=== PATIENT | female | born 1950 | race Caucasian/White ===

== ENCOUNTER → 2020-01-13 09:31 | Outpatient (BNVA) | payer SELFPAY | PROVIDERS: PCP Internal Medicine; Referring Provider Internal Medicine; Visit Provider Dietitian, Registered | DX: Z76.89 Persons encountering health services in other specified circumstances (principal) ==

== ENCOUNTER → 2020-03-18 09:27 | Outpatient (BNVA) | payer SELFPAY | PROVIDERS: PCP Internal Medicine; Referring Provider Internal Medicine; Visit Provider Surgery | DX: Z76.89 Persons encountering health services in other specified circumstances (principal) ==

== ENCOUNTER 2020-08-31 11:26 | Outpatient (REF) | payer MEDICARE, SELFPAY ==
--- NOTE | ~2020-08-31 | MM_ITS ---
EXAMINATION: MM SCREENING DIGITAL BREAST TOMOSYNTHESIS, BILATERAL CLINICAL INFORMATION: Screening. Asymptomatic. The lifetime risk of breast cancer based on the Tyrer-Cuzick Model is 3%. COMPARISON: Mammography: 06/19/2018, 12/03/2013 TECHNIQUE: Digital breast tomosynthesis is performed in both the craniocaudal and mediolateral oblique views along with computer-aided detection (CAD). Synthesized 2D images are generated from the tomosynthesis. FINDINGS: There are scattered areas of fibroglandular density (ACR BI-RADS breast composition Category b). Parenchymal pattern is similar to prior studies. There is no interval mass or architectural abnormality or abnormal calcifications. Again, there is a biopsy clip marker left breast posterior 3:00 position. There are benign grouped coarse calcifications anterior 5:00 right breast and a benign heavily calcified nodule mid lower inner left breast consistent with degenerating fibroadenoma. The axilla and skin contours are unremarkable. MM/MM tomosynthesis screening BI IMPRESSION: No significant changes from prior exams. ASSESSMENT: BI-RADS 2: Benign RECOMMENDATION: Routine annual mammography screening. This patient's information was entered into a reminder system with a target due date for their next mammogram.
== END 2020-08-31 11:27 | disposition home or self-care (01) ==
LOC: HO.MAMMO 11:26
PROVIDERS: PCP Internal Medicine; Visit Provider Internal Medicine
DX: Z12.31 Encounter for screening mammogram for malignant neoplasm of breast (principal)
CPT/HCPCS: 77063; 77067

== ENCOUNTER → 2020-11-10 12:19 | Outpatient (BNVA) | payer MEDICARE, SELFPAY | PROVIDERS: Visit Provider Orthopaedic Surgery | DX: M75.40 Impingement syndrome of unspecified shoulder (principal) | CPT/HCPCS: 20610; 99212; J1040 ==

== ENCOUNTER 2022-10-18 13:22 | Outpatient (AMB) | payer MEDICARE, SELFPAY ==
--- NOTE | 2022-10-18 14:10 | MHC.OFFWIV ---
Intake Vital Signs 10/18/22 14:16 BP 122/80 Blood Pressure Location Rt brachial Position Sitting Pulse 80 Pulse Source Pulse Oximeter Temp 97.7 F Temp Source Temporal Artery Scan Pulse Oximetry (%) 98 Oxygen Delivery Method Room Air Intake Visit Reasons: REHABILITATION PROGRAM COORDINATOR, Cough , needlestick right hand (lobby)(masked) Intake Note: Patient here for cough thats been present for about 2 weeks, coughing frequently. She also wanted to talk about how she was stuck with a diabetic needle while picking some trash up that someone had thrown into her yard. Patient Tobacco Use Status: Current everyday Tobacco user Allergies diphenhydramine [From BENADRYL] Allergy (Severe, Unverified 10/18/22 14:15) CHEST PAIN adhesive tape [ADHESIVE TAPE] Allergy (Intermediate, Unverified 10/18/22 14:15) BLISTERES, RASH oxycodone [From Percocet] Allergy (Intermediate, Unverified 10/18/22 14:15) ITCHING acetaminophen [Percocet] Allergy (Unknown, Verified 10/18/22 14:15) unk adhesive tape Allergy (Unknown, Uncoded 10/18/22 14:15) unk Do you need a note to return to daycare/school/sports/work: No HPI REHABILITATION PROGRAM COORDINATOR, Cough , needlestick right hand (lobby)(masked) HPI Details Patient presents today with 2 primary concerns. She reports an upper respiratory infection for the last 2 weeks, that has not responded to conservative methods and [id number] treatment. She has had persistent cough and congestion with clear/yellow sputum. She denies any fever, chills, shortness of breath, or GI symptoms. She also reports getting an accidental needlestick in the palm of her right hand 3 days ago, when removing the bag of trash someone had dumped in her yard. The needle did break her skin. She noted that this was a diabetic needle, in the presence of other diabetic supplies. [facility] Medical History HTN (hypertension) Osteoarthritis Surgical History History of endometrial ablation History of laser assisted in situ keratomileusis History of repair of hiatal hernia History of sleeve gastrectomy Hx laparoscopic cholecystectomy Hx of arthroscopic knee surgery Hx of carpal tunnel repair Hx of colonoscopy Hx of laparoscopic gastric banding Hx of tubal ligation Family History Father Aspiration pneumonia Diabetes mellitus CVA (cerebral vascular accident) Mother Arthritis Failure to thrive Brother Small cell lung cancer Brother Arthritis Total knee replacement status Brother Arthritis Total knee replacement status Brother MIS (Mullerian inhibiting substance) deficiency Brother MIS (Mullerian inhibiting substance) deficiency Daughter Seasonal allergies Social History Alcohol intake: never Patient Tobacco Use Status: Current everyday Tobacco user Review of Systems Const All systems reviewed & are unremarkable except as noted in HPI and below Physical Exam Vital Signs: Last Vital Signs Temp 97.7 F 10/18/22 14:16 Pulse 80 10/18/22 14:16 BP 122/80 10/18/22 14:16 Pulse Ox 98 10/18/22 14:16 Oxygen Delivery Method Room Air 10/18/22 14:16 Const General: cooperative, healthy appearing, comfortable and no acute distress HEENT Head: Yes normal to inspection Ears: hearing grossly normal bilaterally General nose exam: Normal external nose present and Normal nasal mucous membranes and turbinates present Face and sinus: Yes normal facial exam Mouth: Normal oral and palatal mucosa present and moist mucous membranes Throat: Yes posterior oropharynx abnormal (Mild erythema) Neck Neck: Yes no lymphadenopathy Resp Effort & Inspection: normal respiratory effort, able to speak in complete sentences and Actively coughing Quality: actively coughing Auscultation: clear to auscultation bilaterally and wheezes right upper Cardio Jugular venous distension: no JVD Palpation: normal PMI Rate: regular rate Rhythm: regular rhythm Skin General skin exam: no rashes or lesions noted Extrem General: Yes capillary refill normal and Yes no clubbing, cyanosis or edema Psych Appearance: grossly normal Mental Status: mental status grossly normal Speech and movement: Normal speech and movement present Assessment & Plan Assessment & Plan (1) Needle stick, hypodermic, accidental: Code(s): W46.0XXA - Contact with hypodermic needle, initial encounter Qualifiers: Encounter type: initial encounter Qualified Code(s): W46.0XXA - Contact with hypodermic needle, initial encounter Plan: Patient suffered an accidental needlestick in her right hand on Sunday, when she was picking up a bag of trash that had been dumped in her yard. She reports it was a diabetic needle. Needle stick site is healed at this time. I will order screening labs for HIV/Hepatitis. Patient declines tetanus shot at this time. Will discuss this and any further screening labs with her PCP next month. (2) Upper respiratory infection: Code(s): J06.9 - Acute upper respiratory infection, unspecified Plan: Azithromycin for URI which has been persistent for over 2 weeks. Reviewed indications, use, possible side effects. Orders: Orders Hepatitis A,B,C Profile Today W46.0XXA - Contact with hypodermic needle, initial encounter HIV Ab/Ag Today W46.0XXA - Contact with hypodermic needle, initial encounter Medications: New azithromycin For 250 mg dose pack: take 500 mg today (day 1), then 250 mg for 4 days (days 2-5) PO 6 tabs 0RF J06.9 - Acute upper respiratory infection, unspecified Coding Level of Care Code Est Pt Level 3 (55519) Diagnoses Needle stick, hypodermic, accidental W46.0XXA Encounter type: initial encounter Upper respiratory infection J06.9
[2022-10-18 14:16] VITALS: BP 122/80; PULSE 80; TEMP 36.5; O2SAT 98
== END 2022-10-18 15:06 | disposition home or self-care (01) ==
PROVIDERS: Visit Provider Nurse Practitioner Family
DX: J06.9 Acute upper respiratory infection, unspecified (principal); W46.0XXA Contact with hypodermic needle, initial encounter
CPT/HCPCS: 99203

== ENCOUNTER 2022-10-18 15:02 | Outpatient (REF) | payer MEDICARE, SELFPAY ==
[2022-10-19 05:24] LABS: HBS Num1 0.19 mIU/mL (0-7.99); HBc Num1 0.11 S/CO (0.00-0.79); HBsAGNum1 0.37 S/CO (0.00-0.99); HIV AB/AG Nonreactive (Nonreactive); HIV Num 1 0.05 S/CO (0.00-0.99); Hepatitis A Antibody IgM 0.19 Index (0-0.79); Hepatitis B Core Antibody Nonreactive (Nonreactive); Hepatitis B Surface Antigen Negative (Negative); ~HepC Num1 0.11 S/CO (0.00-0.79); ~Hepatitis A Antibody IgM Nonreactive (Nonreactive); ~Hepatitis B Surface Antibody NONREACTIVE (Nonreactive); ~Hepatitis C Antibody Nonreactive (Nonreactive)
== END 2022-10-18 15:03 | disposition home or self-care (01) ==
LOC: HO.HMGCLDS 15:02
PROVIDERS: PCP Internal Medicine; Visit Provider Nurse Practitioner Family
DX: Z77.21 Contact with and (suspected) exposure to potentially hazardous body fluids (principal); W46.0XXA Contact with hypodermic needle, initial encounter; Y93.9 Activity, unspecified; Y92.9 Unspecified place or not applicable; Y99.9 Unspecified external cause status
CPT/HCPCS: 36415; 86704; 86706; 86709; 86803; 87340; 87389